=== PATIENT | male | born 1955 | race African-American/Black ===

== ENCOUNTER 2020-08-10 23:44 | Emergency (ER) | payer OTHER ==
[~2020-08-10] VITALS: Ht 182.9 cm; Wt 81.7 kg
[2020-08-10 23:46] VITALS: BP 111/80
[2020-08-11] MEDS ORDERED: BACLOFEN 10MG T10 MG PER TUBE ×2 (00:05→00:06)
[2020-08-11] MEDS ORDERED: BIOTENE1000 ML PO (00:06)
[2020-08-11] MEDS ORDERED: VOLTAREN GEL 1100 G1 TOP (00:07)
[2020-08-11] MEDS ORDERED: DEPAKOTE125 MG PER TUBE (00:08)
[2020-08-11] MEDS ORDERED: ESCITALOPRAM OX20 MG PER TUBE (00:09)
[2020-08-11] MEDS ORDERED: TRANSDERM-SCOP1 EACH TRANSDERM (14:58)
== END 2020-08-11 02:27 ==
LOC: ER 23:44
DX: Z43.1 Encounter for attention to gastrostomy (principal); Z79.899 Other long term (current) drug therapy; Z88.0 Allergy status to penicillin; Z88.1 Allergy status to other antibiotic agents

== ENCOUNTER 2020-08-11 14:02 | Emergency (ER) | payer OTHER ==
[~2020-08-11] VITALS: Ht 182.9 cm; Wt 81.7 kg
[~2020-08-11 14:02] MED LIST: BACLOFEN 10MG T10 MG PER TUBE; BIOTENE1000 ML PO; DEPAKOTE125 MG PER TUBE; ESCITALOPRAM OX20 MG PER TUBE; VOLTAREN GEL 1100 G1 TOP
[2020-08-11] MEDS ORDERED: TRANSDERM-SCOP1 EACH TRANSDERM (14:58)
[2020-08-11 17:11] LABS: HEMATOCRIT 40.2 % (42.0-52.0); HEMOGLOBIN 13.5 gm/dL (14.0-18.0); MCH 30.1 pg (26.0-34.0); MCHC 33.5 g/dL (28.0-37.0); RBC 4.47 mil/uL (4.50-6.00); RDW 14.3 % (10.5-14.5)
[2020-08-11 17:40] LABS: CALCIUM 9.6 mg/dL (8.5-10.1); CREATININE 0.6 mg/dL (0.7-1.3)
[2020-08-11 17:44] LABS: MAGNESIUM 2.2 mg/dL (1.8-2.4); PHOSPHORUS 3.6 mg/dL (2.5-4.9)
[2020-08-11 21:18] VITALS: BP 116/85
== END 2020-08-11 21:18 | disposition home or self-care (01) ==
LOC: ER 14:02
PROVIDERS: Emergency Medicine
DX: K94.23 Gastrostomy malfunction (principal); Z79.899 Other long term (current) drug therapy; Z88.0 Allergy status to penicillin; Z88.1 Allergy status to other antibiotic agents

== ENCOUNTER 2021-03-12 17:25 | Emergency (ER) | payer OTHER ==
[~2021-03-12] VITALS: Ht 182.9 cm; Wt 70.3 kg
[~2021-03-12 17:25] MED LIST changes: +TRANSDERM-SCOP1 EACH TRANSDERM
[2021-03-12] MEDS ORDERED: CEPHALEXIN500 MG PO (19:20)
[2021-03-12 20:25] VITALS: BP 110/74
== END 2021-03-12 20:26 ==
LOC: ER 17:25
DX: K94.23 Gastrostomy malfunction (principal); L03.311 Cellulitis of abdominal wall; Z88.0 Allergy status to penicillin; Z88.1 Allergy status to other antibiotic agents; Z86.73 Personal history of transient ischemic attack (TIA), and cerebral infarction without residual deficits

== ENCOUNTER 2021-03-15 12:04 | Emergency (ER) | payer OTHER ==
[~2021-03-15] VITALS: Ht 182.9 cm; Wt 70.3 kg
[~2021-03-15 12:04] MED LIST changes: +CEPHALEXIN500 MG PO
[2021-03-15 15:33] VITALS: BP 98/64
== END 2021-03-15 15:33 | disposition home or self-care (01) ==
LOC: ER 12:04
DX: K94.23 Gastrostomy malfunction (principal); Z88.0 Allergy status to penicillin; Z88.1 Allergy status to other antibiotic agents; Z79.899 Other long term (current) drug therapy; Z86.73 Personal history of transient ischemic attack (TIA), and cerebral infarction without residual deficits

== ENCOUNTER 2021-03-15 20:36 | Emergency (ER) | payer OTHER ==
[~2021-03-15] VITALS: Ht 182.9 cm; Wt 63.5 kg
[2021-03-16] VITALS: BP 107/78
== END 2021-03-16 00:20 ==
LOC: ER 20:36
DX: K94.23 Gastrostomy malfunction (principal); Z86.73 Personal history of transient ischemic attack (TIA), and cerebral infarction without residual deficits; Z88.0 Allergy status to penicillin; Z88.1 Allergy status to other antibiotic agents; Y84.8 Other medical procedures as the cause of abnormal reaction of the patient, or of later complication, without mention of misadventure at the time of the procedure; Y92.89 Other specified places as the place of occurrence of the external cause